=== PATIENT | female | born 1970 | race Caucasian/White ===

== ENCOUNTER → 2017-06-25 | Outpatient (CLI) | payer OTHER ==
[2017-06-25 12:48] LABS: ALBUMIN 3.7 g/dL (3.4-5.0); ALKALINE PHOSPHATASE 85 U/L (46-116); ANION GAP 8 mmol/L (7-16); BUN 9 mg/dL (7-18); CALCIUM 9.7 mg/dL (8.5-10.1); CHLORIDE 103 mmol/L (98-107); CHOLESTEROL 158 mg/dL (<200); CO2 31 mmol/L (21-32); CREATININE 0.7 mg/dL (0.6-1.3); GLUCOSE 92 mg/dL (70-99); HDL CHOLESTEROL 39 mg/dL (>40); LDL CHOLESTEROL 90 mg/dL (<100); POTASSIUM 3.7 mmol/L (3.5-5.1); SGOT 27 U/L (15-37); SGPT 34 U/L (30-65); SODIUM 142 mmol/L (136-145); TC:HDL 4.1 Ratio (Not establshd); TOTAL BILIRUBIN 0.4 mg/dL (<0.1-1.0); TOTAL PROTEIN 6.8 g/dL (6.4-8.2); TRIGLYCERIDE 145 mg/dL (<150); VLDL 29 mg/dL (<40)
[2017-06-25 12:49] LABS: SERUM ASSESSMENT Clear
[2017-06-25 21:07] LABS: GLYCOHEMOGLOBIN (HGB A1C) 5.5 % (4.8-5.6)
== END ==
LOC: M.ULTRA 06-19 11:30
PROVIDERS: Family Medicine
DX: I10 Essential (primary) hypertension (principal); E78.5 Hyperlipidemia, unspecified; N64.4 Mastodynia; R73.02 Impaired glucose tolerance (oral)

== ENCOUNTER → 2017-12-30 | Outpatient (CLI) | payer OTHER | LOC: M.ULTRA 09:00 | DX: N63.10 Unspecified lump in the right breast, unspecified quadrant (principal) ==

== ENCOUNTER → 2018-10-13 | Outpatient (CLI) | payer OTHER | LOC: M.RAD 10-06 13:30 | DX: Z12.31 Encounter for screening mammogram for malignant neoplasm of breast (principal) ==

== ENCOUNTER → 2018-11-13 | Outpatient (CLI) | payer OTHER ==
[2018-11-13 07:30] LABS: POTASSIUM 3.6 mmol/L (3.5-5.1)
== END ==
LOC: M.LAB 04:37
PROVIDERS: Student in an Organized Health Care Education/Training Program
DX: E11.9 Type 2 diabetes mellitus without complications (principal); E87.6 Hypokalemia

== ENCOUNTER → 2018-12-03 | Outpatient (CLI) | payer OTHER | LOC: M.LAB 04:55 | DX: E87.6 Hypokalemia (principal) ==

== ENCOUNTER → 2019-04-14 | Outpatient (CLI) | payer OTHER | LOC: M.RAD 14:00 → M.ULTRA 04-15 09:00 → M.RAD 04-15 09:00 | DX: R92.8 Other abnormal and inconclusive findings on diagnostic imaging of breast (principal) ==

== ENCOUNTER → 2019-08-18 | Outpatient (CLI) | payer OTHER ==
--- NOTE | 2019-08-23 18:04 | SLEEP ---
[address] [address] SLEEP STUDY REPORT Name: LUH ARREGUIN Room: [facility]#: [id number] Admission: 08/18/19 Attend Phys: Odalis Sepulveda MD Discharge: Date of : 66 Report #: [id number] THIS REPORT FOR: //name// CC: Odalis Sepulveda This study has been reviewed in its entirety by a board certified sleep specialist DATE OF SERVICE: 08/18/2019 SLEEP STUDY ATTENDING PHYSICIAN: Dr. Odalis Sepulveda. HISTORY: The patient is a 49 years old who weighs 210 pounds with a BMI of 31.9. The patient had a home sleep study and was positive for MELISSA. Results of the study was not available at the time of dictation. The patient was referred for in-lab CPAP titration study. During the night study, the patient spent 391 minutes in the bed and slept for 269 minutes with a sleep efficiency of 69%. Sleep latency was 36 minutes with a REM latency of 211 minutes. Sleep architecture showed normal stage 1 sleep, increased stage 2 sleep, increased slow wave and slightly reduced REM sleep. EKG monitoring revealed an average heart rate of 59.5 beats per minute. No sustained arrhythmias observed. Mild PLMS were seen at an index of 11 per hour and 4 per hour caused EEG arousals. The patient was started on CPAP at 5 cm water and titrated up to 20 cm water. Best results were seen at a CPAP pressure of 13 cm water. At that pressure, the patient slept for 86 minutes including 27.9 minutes of supine and REM sleep. The patient's AHI was 2.1 per hour and oxygen saturation remained above 91%. Beyond that pressure, the patient was titrated up to a pressure of 20 cm water. However, very limited sleep was seen on each pressures and even though AHI was high that would not truly reflect an in-effective pressure. I would recommend the patient should be placed on 13 cm water and follow the download data. IMPRESSION: 1. Sleep apnea diagnosed previously by home sleep study. 2. Mild PLMS, which does not need to be treated. RECOMMENDATIONS: 1. CPAP at 13 cm water should be [place] [address] SLEEP STUDY REPORT Name: LUH ARREGUIN LASHONDA Room: [facility]#: [id number] Admission: 08/18/19 Attend Phys: Odalis Sepulveda MD Discharge: Date of : 66 Report #: [id number] 2. The patient should have a followup in 4 to 6 weeks to assess compliance with CPAP and to document clinical improvement along with review of the download data. If the patient's AHI remains more than 10 per hour on the download data then the patient should return for a BiPAP titration study. 3. Avoid [employer] depressant. 4. Cautioned regarding driving until symptoms of sleep apnea resolve with the use of CPAP. 5. Weight loss to the ideal body weight is recommended. <ELECTRONICALLY SIGNED> By: Cornel Alexander MD 08/23/19 1804 1422 [id number] Alex Alexander MD /nt
== END ==
LOC: M.SLEEPLAB 08-09 21:00
DX: G47.30 Sleep apnea, unspecified (principal)

== ENCOUNTER → 2019-11-10 | Outpatient (CLI) | payer OTHER | LOC: M.RAD 08:54 | DX: Z12.31 Encounter for screening mammogram for malignant neoplasm of breast (principal) ==

== ENCOUNTER → 2020-11-30 | Outpatient (CLI) | payer OTHER | LOC: M.RAD 08:51 | PROVIDERS: ATTEND Family Medicine | DX: Z12.31 Encounter for screening mammogram for malignant neoplasm of breast (principal) ==

== ENCOUNTER → 2020-12-06 | Outpatient (CLI) | payer OTHER | LOC: M.RAD 12-05 08:29 | PROVIDERS: ATTEND Family Medicine | DX: N63.20 Unspecified lump in the left breast, unspecified quadrant (principal); R92.1 Mammographic calcification found on diagnostic imaging of breast; R92.8 Other abnormal and inconclusive findings on diagnostic imaging of breast ==

== ENCOUNTER → 2021-06-07 | Outpatient (CLI) | payer OTHER | LOC: M.RAD 08:50 | PROVIDERS: ATTEND Family Medicine | DX: N63.21 Unspecified lump in the left breast, upper outer quadrant (principal) ==